=== PATIENT | male | born 1960 | race American Indian/Alaskan Native ===

== ENCOUNTER 2019-09-26 14:29 | Emergency (ER) | payer MEDICAID ==
[~2019-09-26] VITALS: Ht 177.8 cm; Wt 100.0 kg
[~2019-09-26 14:29] MED LIST: ALB0.5UD IH; ASPI-1053 PO; ATOR40TA PO; ATR0.5NEB IH; CHOL20004 PO; CLOP75TA15 PO; INSU100I9 SQ; LACT10SO57 PO; LISI-642 PO; METO50TA16 PO; NICO-631 TD; OLAN5TAB3 PO; PRED15SO23 PO; RIFA550T PO; SPIR25TA5 PO; folic acid PO
[2019-09-26 14:56] LABS: CLARITY,URINE SLIGHTLY CLOUDY (Clear); COLOR,URINE YELLOW (Yellow); GLUCOSE, URINE NEGATIVE (Neg); KETONES,URINE NEGATIVE (Neg); LEUKOCYTE ESTERASE ,URINE TRACE (Neg); NITRITES, URINE POSITIVE (Neg); OCCULT BLOOD,URINE MODERATE (Neg); PROTEIN,URINE NEGATIVE (Neg)
[2019-09-26 14:58] LABS: BASOPHILS # (AUTO) 0.1 X10'3 (0-0.2); BASOPHILS % (AUTO) 0.4 % (0-1); EOSINOPHILS # (AUTO) 0.1 X10'3 (0-0.9); EOSINOPHILS % (AUTO) 0.7 % (0-6); HEMATOCRIT 46.1 % (42.0-52.0); HEMOGLOBIN 14.9 g/dl (14.0-17.9); LYMPHOCYTES # (AUTO) 0.8 X10'3 (1.1-4.8); MEAN CORPUSCULAR HEMOGLOBIN 29.2 PG (27.0-31.0); MEAN CORPUSCULAR HGB CONC 32.3 g/dL (33.0-36.5); MEAN CORPUSCULAR VOLUME 90.7 FL (78-98); MEAN PLATELET VOLUME 8.6 FL (7.4-10.4); MONOCYTES # (AUTO) 0.3 X10'3 (0-0.9); MONOCYTES % (AUTO) 1.9 % (2-12); NEUTROPHILS # (AUTO) 12.6 X10'3 (1.8-7.7); PLATELET COUNT 262 X10'3 (140-440); RED BLOOD COUNT 5.08 X10'6 (4.70-6.10); RED CELL DISTRIBUTION WIDTH 17.8 % (11.5-14.5); WHITE BLOOD COUNT 13.8 X10'3 (4.5-11.0)
--- NOTE | 2019-09-26 15:00 | NUR ---
Pt. incont. of stool. Had a large liquid stool. Cleaned pt. using warm water and soap. Has redness and blanching to buttocks. placed clean chux under pt. provided warm blankets.
[2019-09-26 15:05] LABS: UA COLLECTION TYPE FOLEY CATH
[2019-09-26 15:09] LABS: PARTIAL THROMBOPLASTIN TIME 25 SECONDS (22-32); WBC,URINE 50-100 /HPF (0-4)
[2019-09-26 15:10] LABS: BACTERIA,URINE 4+ /HPF (Neg); MUCUS STRANDS NONE SEEN /LPF (Neg); SQUAMOUS EPITHELIAL CELL,UR FEW /LPF (FEW)
[2019-09-26] MEDS ORDERED: ondansetron/PF 4mg/2ml inj IV ONE (15:10)
[2019-09-26 15:11] LABS: WBC CLUMPS,URINE FEW /HPF (NEGATIVE)
[2019-09-26 15:12] LABS: ALANINE AMINOTRANSFERASE 222 U/L (12-78); ALBUMIN 2.3 G/DL (3.4-5.0); ALBUMIN/GLOBULIN RATIO 0.5 (1.1-1.5); ALKALINE PHOSPHATASE 427 IU/L (46-116); ANION GAP 5 (8-16); ASPARTATE AMINO TRANSFERASE 174 U/L (10-37); BILIRUBIN,TOTAL 1.3 MG/DL (0.1-1.0); BLOOD UREA NITROGEN 30 MG/DL (7-18); BUN/CREATININE RATIO 36.1 (5.4-32.0); CALCIUM 9.2 MG/DL (8.5-10.1); CHLORIDE 110 MMOL/L (99-107); CREATININE 0.83 MG/DL (0.60-1.10); GLUCOSE 156 MG/DL (70-104); POTASSIUM 4.6 MMOL/L (3.5-5.1); SODIUM 142 MMOL/L (135-145); TOTAL PROTEIN 7.2 G/DL (6.4-8.2); eGFR > 90 ML/MIN
[2019-09-26 15:16] LABS: TROPONIN I 0.04 NG/ML (0.0-0.05)
--- NOTE | 2019-09-26 15:55 | NUR ---
Pt to CT scan as ordered.
--- NOTE | 2019-09-26 16:11 | NUR ---
returned from CT scan as ordered. VSS. Urine sample obtained from cather. pt. sleeping and arouses to light tapping on shoulder.
[2019-09-26] MEDS ORDERED: CEPH-572 PO (16:32)
[2019-09-26] MEDS ORDERED: CefTRIAXone 2gm/D5W 50ml 50 ML IV ONE (16:35)
[2019-09-26 17:16] VITALS: BP 119/77
--- NOTE | 2019-09-26 18:21 | NUR ---
Phone report given to Maricarmen ALBERTO at [facility]
== END 2019-09-26 19:54 | disposition home or self-care (01) ==
LOC: ER 14:29
DX: N39.0 Urinary tract infection, site not specified (principal); I71.4 Abdominal aortic aneurysm, without rupture; R74.0 Nonspecific elevation of levels of transaminase and lactic acid dehydrogenase [LDH]; E78.00 Pure hypercholesterolemia, unspecified; I10 Essential (primary) hypertension; E11.9 Type 2 diabetes mellitus without complications; F20.9 Schizophrenia, unspecified; Z79.82 Long term (current) use of aspirin; Z79.4 Long term (current) use of insulin; Z79.899 Other long term (current) drug therapy; Z96.0 Presence of urogenital implants; Z97.8 Presence of other specified devices
CPT/HCPCS: 36415; 71250; 74176; 80053; 81001; 82948; 83605; 84484; 85025; 85610; 85730; 87040; 87077; 87088; 87186; 93005; 96365; 96375; 99285; J0696; J2405

== ENCOUNTER 2019-09-29 06:25 | Day surgery (SDC) | payer MEDICAID ==
[~2019-09-29] VITALS: Ht 175.3 cm; Wt 84.0 kg
[~2019-09-29 06:25] MED LIST changes: +CEPH-572 PO
[2019-09-29] MEDS ORDERED: normal saline 1000ml 1,000 ML IV PRN (06:40)
[2019-09-29] MEDS ORDERED: CEPH500C2 PO (07:18)
[2019-09-29] MEDS ORDERED: NYST1000 PO (07:23)
[2019-09-29 07:28] VITALS: BP 132/89
[2019-09-29] MEDS ORDERED: diatr meglu/diatrizoate 30ml oral sol.-(3 dose) bottle PO ONE (07:35)
[2019-09-29 11:45] VITALS: BP 143/62
== END 2019-09-29 12:15 ==
LOC: SSTAY O 06:25
PROVIDERS: ATTEND Radiology Diagnostic Radiology
DX: R13.10 Dysphagia, unspecified (principal); Z53.8 Procedure and treatment not carried out for other reasons; Z79.899 Other long term (current) drug therapy
CPT/HCPCS: 82948; Q9963

== ENCOUNTER 2019-10-04 08:04 | Day surgery (SDC) | payer MEDICAID ==
[~2019-10-04] VITALS: Ht 175.3 cm; Wt 83.9 kg
[2019-10-04] VITALS (8 sets, daily range): BP systolic 109–139; BP diastolic 73–98
[~2019-10-04 08:04] MED LIST changes: -CEPH-572 PO; +CEPH500C2 PO; +NYST1000 PO
[2019-10-04] MEDS ORDERED: normal saline 1000ml 1,000 ML IV SCH (08:15)
[2019-10-04] MEDS ORDERED: cefazolin/dext.iso 2gm/100ml 100 ML IV ONE (08:20)
[2019-10-04] MEDS ORDERED: ceFAZolin 2gm in dextrose, iso 50 ML IV ONE (08:22)
--- NOTE | 2019-10-04 08:30 | NUR ---
RECEIVED REPORT FROM JOAN NURSE AT [facility]. SHE STATED ALL MEDS GIVEN YESTERDAY. PLAVIX HAS BEEN HELD X 6 DAYS. RIGHT UPPER ARM RESTRAINT NOT BEING USED AT THIS TIME. PER JOAN ONLY USED AT NIGHT TIME. PT HAS PICC RIGHT UPPER ARM. PT NON VERBAL, PT ABLE TO SHAKE HEAD YES AND NO. 2 RN CONSENT FROM [facility] FOR G TUBE PLACEMENT. ACCU CHECK DID NOT SCAN IN BLOOD SUGAR 80. NG TUBE CLAMPED RIGHT NARE FROM [facility]. COYLE CATH IN PLACE, PATRICIO URINE.
[2019-10-04] MEDS ORDERED: iohexol 300 MG/1 ML 50ml polymer ONE (08:35)
[2019-10-04] MEDS ORDERED: fentaNYL/PF 50MCG/1 ML 2ML syringe ONE (08:35)
[2019-10-04] MEDS ORDERED: glucagon, human recombinant 1mg kit ONE (08:35)
[2019-10-04] MEDS ORDERED: midazolam 2 mg/2 ml injection ONE (08:35)
[2019-10-04] MEDS ORDERED: LIDOcaine 1%/PF 5ML 10 MG/ML VIAL ONE (08:35)
[2019-10-04] MEDS ORDERED: ondansetron/PF 4mg/2ml inj ONE (09:27)
[2019-10-04] MEDS ORDERED: zinc oxide ointment 30gm tube TP PRN (09:55)
--- NOTE | 2019-10-04 10:05 | NUR ---
PT BACK FROM G TUBE PLACEMENT IN STABLE CONDITION. BACK IN ROOM, BED, LOW, LOCKED, CALL LIGHT IN REACH. G TUBE SITE CDI LEFT ABD. VITAL SIGNS STABLE. WILL CONTINUE TO MONITOR.
--- NOTE | 2019-10-04 11:20 | NUR ---
report called to Colleen pradhan at the [facility]. reese toeric d/c instructions resume plavix tomorrow, g tube may be used after 6hrs, may give po/gi when positive bowel sounds, do not excede 40 psi feeding. 50 free water after feeding or q6hrs if continuous. check residuals. cefazolin 2gms given during procedure. left abdomen site cdi, pt resting comfortably.
--- NOTE | 2019-10-04 13:00 | NUR ---
PT TRANSFERRED BACK TO [facility] IN STABLE CONDITION BY EMR. O2 2.5L NC. COYLE CATHETER INTACT, NG TUBE RIGHT NARE. NEW G TUBE LEFT ABDOMEN SITE CDI. PICC LINE RIGHT UPPER ARM.
== END 2019-10-04 13:00 ==
LOC: SSTAY O 08:04
PROVIDERS: ATTEND Radiology Vascular & Interventional Radiology
DX: I69.391 Dysphagia following cerebral infarction (principal); R13.10 Dysphagia, unspecified; I69.352 Hemiplegia and hemiparesis following cerebral infarction affecting left dominant side; Z79.899 Other long term (current) drug therapy
CPT/HCPCS: 49440; 82948; 99152; 99153; C1713; C1729; J1610; J2250; J2405; J3010; J7030; Q9967; B4087